=== PATIENT | female | born 1950 | race Caucasian/White ===

== ENCOUNTER 2017-07-27 18:56 | Emergency (ER) | payer OTHER ==
[2017-07-27] MEDS ORDERED: DIPH,PERTUSS(ACELL),TET VAC/PF 0.5 ML DISP.SYRIN IM ONE (19:16)
--- NOTE | 2017-07-27 19:16 | ED Physician Documentation ---
General Adult - HISTORIAN Historian: patient - HPI Stated Complaint: Cat Bite Chief Complaint: General Adult Onset: hours (1) Timing: still present Severity: mild Further Comments: yes (Pt is a 66 yo female with a cat bite to her L hand. Cat is familiar in the neighborhood, but is a stray/outdoor cat. Pt was trying to get the cat out from under her house. Tetanus is not utd.) - ROS CONST: no problems EYES/ENT: none CVS/RESP: none GI/: none MS/SKIN/LYMPH: other (cat bite L hand) - PAST HX Past History: none Allergies/Adverse Reactions: Allergies Allergy/AdvReac Type Severity Reaction Status Date / Time codeine Allergy Verified 07/27/17 19:08 Home Medications: Ambulatory Orders Medication Instructions Recorded Amoxicillin/Potassium Clav 1 each PO Q12H #14 tablet 07/27/17 [Augmentin 875-125 Tablet] - SOCIAL HX Smoking History: cigarettes - FAMILY HX Family History: No - VITAL SIGNS Vital Signs: Vital Signs Temp Pulse Resp BP Pulse Ox 76 18 165/96 97 07/27/17 18:56 07/27/17 18:56 07/27/17 18:56 07/27/17 18:56 - REVIEWED ASSESSMENTS Nursing Assessment Reviewed: Yes Vitals Reviewed: Yes Progress - Progress Progress: Tdap 0.5 ml IM Small skin tear L hand, 1st web space, closed with steri-strips after soaking in [place]. Rx Augmentin (875/125). Take one tablet by mouth every 12 hrs for 7 days. General Adult Physical Exam - PHYSICAL EXAM GENERAL APPEARANCE: mild distress NECK: normal inspection, supple RESPIRATORY: no resp distress, chest non-tender, breath sounds normal CVS: reg rate & rhythm, heart sounds normal BACK: normal inspection SKIN: other (small bite/skin tear in the web space of digits 1 & 2 of L hand.) EXTREMITIES: normal range of motion, other (small bite/skin tear in the web space of digits 1 & 2 of L hand.) NEURO: oriented X3, motor nml, sensation nml Discharge Clincal Impression: cat bite/skin tear L hand Prescriptions: Amoxicillin/Potassium Clav [Augmentin 875-125 Tablet] 1 each PO Q12H #14 tablet Referrals: Primary Doctor,No [Primary Care Provider] - Condition: Good Disposition: 01 HOME, SELF-CARE Decision to Admit: NO Decision Time: 19:58
[2017-07-27 19:55] VITALS: BP 145/79
== END 2017-07-27 19:54 | disposition home or self-care (01) ==
LOC: ED 18:56
DX: S60.572A Other superficial bite of hand of left hand, initial encounter (principal); W55.01XA Bitten by cat, initial encounter; Y93.89 Activity, other specified; Y92.008 Other place in unspecified non-institutional (private) residence as the place of occurrence of the external cause; Z23 Encounter for immunization
CPT/HCPCS: 90471; 99282